=== PATIENT | male | born 1945 | race Caucasian/White ===

== ENCOUNTER → 2019-04-23 10:28 | Outpatient (CLI) | payer OTHER, MEDICARE, BC, SELFPAY ==
--- NOTE | 2019-04-23 | DI.RAD.S_ITS ---
PROCEDURE: FL BARIUM SWALLOW W SPEECH INDICATIONS: Dysphagia, unspecified TECHNIQUE: Examination was conducted in conjunction with speech pathology per standard protocol. In the lateral projection, filming was performed of the patient swallowing. AP projection filming may also be performed with patient swallowing. COMPARISON: None. FINDINGS: Function: The oral preparatory phase appears normal, with proper containment. The subsequent oral propulsive phase, pharyngeal phase, and esophageal phase of swallowing also appear normal with all proffered substances. There was occasional flash laryngeal penetration with thin liquid barium consistencies. No definite tracheal aspiration. There is moderate residue Morphology: No cricopharyngeal bar is identified. No cervical esophageal webs. No Zenker's diverticulum. No strictures. IMPRESSION: Occasional flash laryngeal penetration. Dictated by: Willie Esparza M.D. on 04/23/2019 at 16:33 Approved by: Willie Esparza M.D. on 04/23/2019 at 16:34
--- NOTE | 2019-04-23 13:05 | ST.SWALLOW ---
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 Bragg, ENT Reason for Referral Dysphagia Setting Setting Outpatient Care Patient Information Identification Type Name,ID Wristband Patient History Carlos Manuel Bee was seen for Modified Barium wallow Study ( MBSS) at the referral of Dr. Bragg. According to the information provided by the pt , he had been experiencing increasing choking on solids and liquids during meals. he stated that is occurs about 1x /week, which has been increasing in frequency over the past 3-4 years. He also reported that he clears his throat almost constantly'. Mr Bee reported that in the late s/early he had surgery to move his mandible forward ~.25 inch bilaterally. Following that surgery, the physician told Mr Bee that he wanted to perform a soft tissue surgery.... However that second surgery was not performed secondary to insurance denial. Mr. Bee noted that the surgeon said that choking may be a problem in the future without that second procedure. Subjective Observations Mr Bee was seated in the fluoroscopy chair. Directions and the procedure were explained to Mr Bee, who indicated he understood. Patient Positioning Position View Lateral Imaging Lateral View Textures Administered Trials Presented Thin Liquid via Spoon,Thin Liquid via Cup,Huntsdale Liquid via Spoon,Huntsdale Liquid via Cup,Honey Liquid via Spoon, Pudding Thick Liquid via Spoon ,Regular Textures Oral Phase Source: MBSIMP (TM) (C) Bolus Specific Scoring Grid Lip Closure WFL Tongue Control During Bolus Hold WFL Bolus Prep/Mastication WFL Bolus Transport/Lingual Motion WFL A/P Lingual Propulsion Delay No Oral Residue WFL Nasal Regurgitation Yes: pt reported x1 with hard swallow trial Additional Oral Phase Observations Oral motor observation informally indicated all structures and function WFL Pharyngeal Phase Source: MBSIMP (TM) (C) Bolus Specific Scoring Grid Delayed Initiation of Pharyngeal Swallow No Soft Palate Elevation WFL Tongue Base Strength/Range of Motion Moderate Impairment Residue Along the Tongue Base Yes Clearance of Residue Along Tongue Base Moderate Impairment Laryngeal Elevation Mild Impairment Anterior Hyoid Movement Severe Impairment Epiglottic Range of Motion Severe Impairment Vallecular Residue Yes Clearance of Vallecular Residue Moderate Impairment Laryngeal Vestibular Closure Mild Impairment Pharyngeal Stripping Wave Severe Impairment Posterior Pharyngeal Wall Residue Yes Clearance of Posterior Pharyngeal Wall Moderate Impairment Residue Upper Esophageal Sphincter Opening WFL Residue in the Pyriform Sinuses Yes Clearance of Residue in the Pyriform Mild Impairment Sinuses Esophageal Clearance Upright Position Mild Impairment Pharyngoesophageal Backflow Observed No Additional Pharyngeal Phase Observations Hyolaryngeal elevation was incomplete with minimal anterior movement of the hyoid bone. The epiglottis did not invert and pooling was observed both in the valeculla and the subepiglottic space/ surface. Weak tongue base contact along with the limited forward movement/elevation of the hyolaryngeal body would contribute to the lack of epiglottic inversion. Additionally there was no observed posterior pharyngeal wall stripping to control the bolus. After several swallows , there was trace residue on the arytenoid cartilages. Penetration of the laryngeal vestibule was observed x1 with thin liquids. No aspiration was observed. Trace pooling in the pyriform sinuses following each swallow. Pooling was also observed on the posterior pharyngeal wall. With the cookie trial, residue was observed on the epiglottis, in the valeculla and along the posterior pharyngeal wall. Mr. Bee cleared his throat a few times after each swallow. He reported that he felt something hang up in there with each swallow. A/P View Clinical Impressions Dysphagia Type Pharyngeal phase dysphagia Rehabilitation Potential Excellent Recommendations Diet Liquids Order Thin Diet Order Regular Medication Recommendation As Tolerated Aspiration Precautions Recommended Precautions Upright at 90 Degrees, Alternate Liquids/Solids,Small Bites/Sips Treatment Plan Therapy Recommendations Outpatient Speech Therapy,Base of Tongue Exercises Compensatory Strategies Recommendations Sitting Upright (90 deg),Small Bites and Sips,Alternate Liquids/Solids
== END ==
PROVIDERS: PCP Family Medicine; Visit Provider Otolaryngology
DX: R13.10 Dysphagia, unspecified (principal)
CPT/HCPCS: 74230; 92611

== ENCOUNTER 2019-09-28 12:30 | Outpatient (RCR) | payer OTHER, MEDICARE, BC, SELFPAY ==
--- NOTE | 2019-08-24 18:43 | ST.OPIE ---
Visit Care Team Role Provider Type Robert Ross MD Primary Care Provider Non-Staff Specialty: Medical Address: [facility] [address], [place], [address] Email: MARINA Larkin Attending Provider Non-Staff Specialty: Nursing Address: [address] [place] [address], [id number] Email: Speech-Language Pathology Initial Evaluation LAB INTERN Clinical Swallow Evaluation Start: 08/23/19 10:38 Freq: Status: Active Protocol: Document 08/23/19 10:38 TERRY (Rec: 08/23/19 10:43 TERRY [id number]) Clinical Swallow Evaluation Session Time Visit Start Time 09:35 Visit Stop Time 10:25 Total Visit Minutes 50 Visit Information Plan of Care Dates 08/23/19 - 11/14/19 Insurance Information [facility] Choice Referral Referring Physician MARINA Wilson Reason for Referral Dysphagia Setting Assessment Location Outpatient Care Visit Type Note Type Initial Evaluation Patient Information History The pt is a 74-yr-old male with complaints of constant presence of phlegm and coughing with crumbly foods and liquids, including saliva. He underwent MBSS on 04/23/19 with findings of penetration of thin liquid into laryngeal vestibule x1 trial, incomplete hyolaryngeal elevation and minimal anterior protrusion, weak tongue base retraction, and minimal epiglottic inversion resulting in pharyngeal residue. Pt required multiple swallows per bolus. No aspiration was observed. 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 An additional procedure was recommended but was not done d/t declined by insurance. The pt reports the surgeon telling him that without the second procedure, he would likely develop swallow problems later in life . Additionally, in early Jul 2019 (~3 wks ago) the pt underwent dilation of UES and at juncture of stomach to intestine. The pt reports food was just sitting in stomach. This was done at [facility]. Since then, the pt felt that he has not been aspirating as frequently. Finally, per pt report via Health History form, medical history includes arthritis, back pain, GERD, hearing problems (pt wears hearing aids), and ulcers. Subjective Observations The pt arrived on time and provided case history supplemental to medical records. He exhibited frequent throat clearing throughout the evaluation with and without oral trials. Evaluation Liquids Trialed Thin,Ehrenfeld Solids Trialed Puree,Mechanical Soft,Regular Administration Type Cup Single Sip,Cup Consecutive Sips,Self-Feeding Oral Impairment WNL Oral Strategies Upright at 90 degrees Oral Phase Comments Oral Peripheral Exam: WNL. Pt has natural dentition in good condition. Hyolaryngeal elevation and anterior excursion were perceived WNL via palpation. Oral Phase: WNL Pharyngeal Impairment Moderately Impaired Pharyngeal Strategies Sitting Upright (90 deg), Double Swallow,Effortful Swallow,Small Bites and Sips Pharyngeal Phase Comments The pt c/o sticking sensation with thin liquids, soft sandwich, and dry cracker. The sensation was still present but improved with NTLs and absent with pudding and diced fruit trials. Frequent throat clearing was observed throughout the evaluation. Difficult to know if this is related to swallow or is a chronic cough, as same throat clearing was observed frequently prior to oral trials. Findings Dysphagia Type Mild-Moderate Pharyngel Dysphagia Rehabilitation Potential Good Impressions Pt presents with mild-moderate pharyngeal dysphagia consistent with MBSS report. Skilled intervention is medically necessary to improve swallow function and safety and increase pt comfort with oral intake. The pt was recommended to incorporate NTLs into diet to increase ease, comfort and safety with liquid intake, although he does not appear to be frankly aspirating thin liquids. He was advised to avoid dry, crumbly, and sticky foods or to alternate intake of these consistencies with liquids. He was in agreement with these recommendations as well as outpatient dysphagia therapy. HEP was established, and pt was trained in CTAR, effortful swallow, suck/swallow, larynx lift, Veronika, and base of tongue exercises. Pt returned demonstration of all and verbalized understanding. Diet Recommendations Liquids Order Thin Diet Order Regular Medication Recommendations As Tolerated Comments Avoid dry, crumbly, sticky foods or alternate with liquids; Include NTLs Aspiration Precautions Recommended Precautions Upright at 90 Degrees,Small Bites/Sips,Effortful Swallow, Double Swallow Treatment Plan Placement Recommendations after Home Discharge Appropriate for Therapy Yes Therapy Recommendations Exercises to improve swallow function, safety, and comfort. Compensatory swallow strategies as needed to reduce risk of aspiration and pharyngeal residue. Dysphagia Goals 1. The pt will perform swallow exerices independently to improve swallow function, safety, and comfort with oral intake. 2. The pt will use compensatory swallow strategies independently to reduce risk of aspiration and pharyngeal residue. 3. The pt will tolerate regular texture and thin liquids without overt s/sx of aspiration and with swallow comfort WNL. LAB INTERN Follow Up 1x/wk for 8 wks
--- NOTE | 2019-09-06 11:29 | ST.IPDYTX ---
Visit Care Team Role Provider Type Robert Ross MD Primary Care Provider Non-Staff Specialty: Medical Address: [address], [place], [address] Email: MARINA Larkin Attending Provider Non-Staff Specialty: Nursing Address: [address], [place], [address] Email: CUSTOMER TRAINER Dysphagia Treatment CUSTOMER TRAINER Dysphagia Treatment Start: 09/06/19 11:12 Freq: Status: Active Protocol: Document 09/06/19 11:13 LNK (Rec: 09/06/19 11:28 LNK [id number]) Dysphagia Treatment Session Time Visit Start Time 10:30 Visit Stop Time 10:55 Total Visit Minutes 25 Visit Information Visit Number 09/11 Plan of Care Dates 08/23/19 - 11/14/19 Setting Assessment Location Outpatient Care Visit Type Note Type Treatment Note Next Note Type Next Note Type Treatment Note Patient Information Identification Type Name,Picture Subjective Observations Pt was seated in the waiting area. Treatment Treatment Activities Pt started session by indicating that he had not done the exercises as listed on HEP. he has been very busy lately. he noted that he has been having difficulty working the exercises into his day. Suggested that he perform the exercises he can while in the car (to and from work) or setting aside ~5 minutes in the morning and afternoon daily. Pt indicated that he thought the car was a good suggestion. Added rapid jaw movement with directions to specifically target the suprahyoid muscles. This treatment has been significantly effective in increasing the height and speed of the hyoid elevation during swallowing. Pt was able to perform the exercise after demonstration and description was provided. Written directions provided to the pt. Assessment Patient Response to Treatment Fair Rehab Potential Good Assessment of Improvement Reminded pt that he needs to be more consistent with practice in order to benefit from the exercises. Diet Recommendations Recommendations Continue Current Diet Treatment Plan Therapy Recommendations Exercises to improve swallow function, safety, and comfort. Compensatory swallow strategies as needed to reduce risk of aspiration and pharyngeal Dysphagia Goals 1. The pt will perform swallow exercises independently to improve swallow function, safety, and comfort with oral intake. 2. The pt will use compensatory swallow strategies independently to reduce risk of aspiration and pharyngeal residue. 3. The pt will tolerate regular texture and thin liquids without overt s/sx of aspiration and with swallow comfort WNL.
--- NOTE | 2019-09-28 13:21 | ST.IPDYTX ---
Visit Care Team Role Provider Type Robert Ross MD Primary Care Provider Non-Staff Specialty: Medical Address: [address], [place], [address] Email: MARINA Larkin Attending Provider Non-Staff Specialty: Nursing Address: [address], [place], [address] Email: OIL [employer] G[employer] LEASE PUMPER Dysphagia Treatment [employer] PUMPER Dysphagia Treatment Start: 09/06/19 11:12 Freq: Status: Active Protocol: Document 09/28/19 13:14 TERRY (Rec: 09/28/19 13:21 TERRY [id number]) Dysphagia Treatment Session Time Visit Start Time 12:30 Visit Stop Time 13:13 Total Visit Minutes 43 Visit Information Visit Number 10/09 Plan of Care Dates 08/23/19 - 11/14/19 Setting Assessment Location Outpatient Care Visit Type Note Type Treatment Note Next Note Type Next Note Type Treatment Note Patient Information Identification Type Name,Picture Subjective Observations Pt arrived on time. 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 Reported moderate compliance with HEP. Coughing with oral intake has reduced from 1-2x/day to 1-2x/ wk. The pt expressed being quite pleased. Treatment Liquids Trialed Thin Solids Trialed Regular Administration Type Cup Consecutive Sips,Self- Feeding Oral Strategies Upright at 90 degrees Pharyngeal Strategies Effortful Swallow Treatment Activities Reviewed HEP task list with pt . He indicated he has been doing rapid jaw opening frequently throughout the day and occasionally doing effortful swallow. Further education provided orally and with animated video demonstration of normal and abnormal swallow and targets of each assigned exercise. Trained pt in Shaker exercise. He performed head hold for 60 sec and 15 read lift/lower reps. He also performed Veronika , CTAR, and laryngeal elevation exercises with occluded vocal tract, demonstrating understanding. Discussed POC and agreed to reduce frequency to every other week for 3 visits. Discussed current Coronavirus situation and agreed that if pt felt ill or uncomfortable visiting the hospital for reasons related to the virus, he would notify the clinic and cancel/reschedule appts. Assessment Patient Response to Treatment Good Rehab Potential Excellent Assessment of Improvement Pt is making good progress with swallow safety, experiencing significantly reduced coughing with oral intake. He has improved compliance with HEP since last session but verbalized understanding of importance of completing the entire program and an intention to do so. Anticipate with improved compliance, the pt will meet goals within the next 3-6 wks. Diet Recommendations Recommendations Continue Current Diet Liquids Order Thin Diet Order Regular Medication Recommendations As Tolerated Comments Avoid dry, crumbly, sticky foods or alternate with liquids; Include NTLs Aspiration Precautions Recommended Precautions Upright at 90 Degrees,Small Bites/Sips,Effortful Swallow, Double Swallow Treatment Plan Placement Recommendation after Discharge Home Appropriate for Continued Therapy Yes Therapy Recommendations Exercises to improve swallow function, safety, and comfort. Compensatory swallow strategies as needed to reduce risk of aspiration and pharyngeal Dysphagia Goals 1. The pt will perform swallow exerices independently to improve swallow function, safety, and comfort with oral intake. 2. The pt will use compensatory swallow strategies independently to reduce risk of aspiration and pharyngeal residue. 3. The pt will tolerate regular texture and thin liquids without overt s/sx of aspiration and with swallow comfort WNL. Follow Up Plan 1x/wk for 8 wks
== END 2020-02-01 09:10 ==
LOC: SP 12:30
PROVIDERS: PCP Family Medicine; Visit Provider Nurse Practitioner Family
DX: R13.19 Other dysphagia (principal)
CPT/HCPCS: 92526; 92610

== ENCOUNTER → 2020-10-30 12:46 | Outpatient (CLI) | payer MEDICARE, OTHER, SELFPAY ==
--- NOTE | 2020-10-30 | DI.RAD.S_ITS ---
PROCEDURE: XR HAND RT 2V INDICATIONS: OSTEOARTHRITIS TECHNIQUE: 3 views of the hand(s) acquired. COMPARISON: None. FINDINGS: Bones: No fractures or dislocations. Carpal bones are normally aligned. No suspicious bony lesions. Severe 2nd through 5th DIP joint osteoarthritis. Mild 1st DIP joint osteoarthritis. Mild 3rd through 5th PIP joint osteoarthritis. Soft tissues: No suspicious soft tissue calcifications. IMPRESSION: Osteoarthritis as described above. Dictated by: Greta Palma MD, PhD on 10/30/2020 at 17:16 Approved by: Greta Palma MD, PhD on 10/30/2020 at 17:17
--- NOTE | 2020-10-30 | DI.RAD.S_ITS ---
PROCEDURE: XR HAND LT 2V INDICATIONS: OSTEOARTHRITIS TECHNIQUE: 3 views of the hand(s) acquired. COMPARISON: None. FINDINGS: Bones: No fractures or dislocations. Carpal bones are normally aligned. No suspicious bony lesions. Severe 5th DIP joint osteoarthritis. Moderate 2nd and 3rd DIP joint as well as 4th and 5th PIP joint osteoarthritis. Mild 1st and 2nd DIP joint osteoarthritis as well as 2nd and 3rd PIP joint osteoarthritis. Soft tissues: No suspicious soft tissue calcifications. IMPRESSION: Osteoarthritis as described above. Dictated by: Greta Palma MD, PhD on 10/30/2020 at 17:17 Approved by: Greta Palma MD, PhD on 10/30/2020 at 17:18
[2020-10-30 13:20] LABS: Add Manual Diff / Slide Review NO; Basophils Absolute Auto 0 /uL (0-100); Basophils Percent Auto 0.8 % (0-2); Eosinophils Absolute Auto 0 /uL (0-450); Eosinophils Percent Auto 1.1 % (2-4); Hematocrit 43.7 % (41-53); Hemoglobin 14.9 g/dL (13.5-17.5); Lymphocytes Absolute Auto 1600 /uL (1100-4500); Mean Corpuscular HGB Conc 34.2 % (30-36); Mean Corpuscular Hemoglobin 30.9 PG (26-34); Mean Corpuscular Volume 90.5 fL (80-100); Monocytes Absolute Auto 500 /uL (0-900); Monocytes Percent Auto 11.8 % (3-14); Neutrophils Absolute Auto 2100 /uL (1500-7000); Neutrophils Percent Auto 49.3 % (50-75); Platelet Count 220 X10^3/uL (150-400); Red Blood Cell Count 4.83 X10^6/uL (4.5-5.9); Red Cell Distribution Width 14.2 % (11.6-14.8); White Blood Cell Count 4.2 X10^3/uL (4.5-11.0)
[2020-10-30 13:45] LABS: Alanine Aminotransferase 21 IU/L (<50); Albumin 4.2 g/dL (3.5-5.0); Albumin Globulin Ratio 1.5 (1.0-2.8); Alkaline Phosphatase 61 U/L (38-126); Aspartate Aminotransferase 29 IU/L (17-59); BUN Creatinine Ratio 24.2 (6-22); Bilirubin Total 0.7 mg/dL (0.2-1.3); Blood Urea Nitrogen 16 mg/dL (9-20); Calcium 9.4 mg/dL (8.4-10.2); Carbon Dioxide 27 mmol/L (22-32); Chloride 104 mmol/L (98-107); Cholesterol 225 mg/dL (140-199); Estimated Glomerular Filt Rate > 60.0 mL/min (>60); Globulin 2.8 g/dL (1.7-4.1); Glucose 100 mg/dL (80-110); HDL Cholesterol 75 mg/dL (40-60); HEMOLYSIS < 15 (0-50); LDL Cholesterol Calculated 136 mg/dL (<100); Sodium 137 mmol/L (137-145); Triglycerides 70 mg/dL (35-150)
[2020-10-30 13:50] LABS: Rheumatoid Factor < 8.6 IU/mL (<12.0)
[2020-10-30 17:20] LABS: Erythrocyte Sedimentation Rate 4 MM/HR (0-15)
== END ==
PROVIDERS: PCP Internal Medicine; Referring Provider Internal Medicine; Visit Provider Internal Medicine
DX: I10 Essential (primary) hypertension (principal); N40.1 Benign prostatic hyperplasia with lower urinary tract symptoms; G47.33 Obstructive sleep apnea (adult) (pediatric); M13.0 Polyarthritis, unspecified
CPT/HCPCS: 36415; 73120; 80053; 80061; 85025; 85651; 86430

== ENCOUNTER → 2020-12-13 13:58 | Outpatient (CLI) | payer MEDICARE, OTHER, SELFPAY ==
[2020-12-13 15:56] LABS: COVID19 -Nasal RAPID Negative (Negative)
== END ==
PROVIDERS: PCP Internal Medicine; Visit Provider Family Medicine Sleep Medicine
DX: Z20.822 Contact with and (suspected) exposure to COVID-19 (principal)
CPT/HCPCS: 87635; C9803

== ENCOUNTER → 2021-10-01 11:25 | Outpatient (CLI) | payer MEDICARE, OTHER, SELFPAY ==
[2021-10-01 15:39] LABS: COVID19 -Nasal RAPID Negative (Negative)
== END ==
PROVIDERS: PCP Internal Medicine; Visit Provider Family Medicine Sleep Medicine
DX: Z20.822 Contact with and (suspected) exposure to COVID-19 (principal)
CPT/HCPCS: 87635; C9803

== ENCOUNTER 2021-10-02 07:39 | Day surgery (SDC) | payer MEDICARE, OTHER, SELFPAY ==
[2021-10-02 08:41] VITALS: BP 176/84; PULSE 63; RESP 16; TEMP 36.8; O2SAT 100; BMI 27.3
[2021-10-02] MEDS: PROPARACAINE 0.5% OPHTH SOL 2 DROPS EYE-OP (08:46)
[2021-10-02] MEDS: CATARACT EYE COMPOUND (10 DROPS/SYRINGE) 3 DROPS EYE-OP (08:49)
--- NOTE | 2021-10-02 09:08 | PM.PREOP ---
Pre-operative Note Interval Note History & Physical reviewed/Exam performed by Physician: Yes Changes to H&P: No
--- NOTE | 2021-10-02 09:08 | PM.OP.1 ---
Operative Date/Time/Diagnoses Pre-op diagnosis: Nuclear cataract right eye Procedure & Clinicians Procedure: Cataract Surgery Same procedure as scheduled: Yes Surgeon: Sameer Davenport Anesthesia Type: MAC +/- and Sedation Operative Notes Procedure in detail: Patient brought to the operating suite. Tetracaine drops placed in the right eye. Patient was prepped and draped in sterile manner. Wire lid speculum was placed in the eye. Betadine drops were placed on the eye. This was irrigated. Lidocaine jelly was placed on the eye. A paracentesis port was created with a side-port blade. 0.1 mL 1% preservative free lidocaine was injected into the anterior chamber. The anterior chamber was deepened with viscoelastic. 2.6 mm keratome was used to create a temporal clear corneal incision. Cystotome and Utrata forceps were used to create continuous tear capsulorrhexis. Balanced salt solution was used to hydro dissect the nucleus. The phacoemulsification handpiece was inserted and the nucleus was removed using the stop and chop technique. The irrigation aspiration handpiece was inserted and the remaining cortex was removed. Anterior chamber was deepened with viscoelastic. An Brown DIB00 intraocular lens with a power of 17.5 was injected into the capsular bag. Irrigation aspiration handpiece was inserted and the remaining viscoelastic was removed. Incision was hydrated with balanced salt solution and found to be leak free with pressure with Weck-Theresa sponges. 0.1 mL Vigamox injected anterior chamber. 0.3 mL Kenalog 10 mg was injected subconjunctivally. Lid speculum was removed. The patient left the operating room in excellent condition. Complications: none Post-operative Condition: stable Disposition: same day surgery
--- NOTE | 2021-10-02 09:09 | PM.PREOP ---
Pre-operative Note Interval Note History & Physical reviewed/Exam performed by Physician: Yes Changes to H&P: No
[2021-10-02] MEDS: MOXIFLOXACIN INJ 4 MG/0.8 ML VIAL 0.5 MG EYE-OP (09:27)
[2021-10-02] MEDS: HYALURONATE SODIUM 30 MG-10 MG/ML SYRINGES 1 BOX INTRAOCULA (09:27)
[2021-10-02] MEDS: LIDOCAINE 2% (GLYDO) 6 ML GEL TOP (09:28)
[2021-10-02] MEDS: BALANCED SALT IRRIG SOLN NO.2 500 ML, EPINEPHrine 1 MG IRR (09:28)
[2021-10-02] MEDS: TRIAMCINOLONE 50 MG/5 ML VIAL INJ (09:28)
[2021-10-02] MEDS: PHENYLEPHRINE/LIDOCAINE VIAL (OR) 0.2 ML EYE-OP (09:28)
[2021-10-02] MEDS: TETRACAINE 0.5% OPHTH DROPS 4 ML 2 DROPS EYE-OP (09:28)
[2021-10-02 09:42] VITALS: BP 164/80; PULSE 63; RESP 14; TEMP 36.2; O2SAT 100
== END 2021-10-02 09:52 | disposition home or self-care (01) ==
PROVIDERS: PCP Internal Medicine; Referring Provider Ophthalmology; Visit Provider Ophthalmology
PROC: (CPT 66984; principal; 2021-10-02 09:45)
DX: H25.11 Age-related nuclear cataract, right eye (principal); I10 Essential (primary) hypertension; D64.9 Anemia, unspecified
CPT/HCPCS: 66984; J0171; J2250; J3301

== ENCOUNTER 2025-04-06 11:12 | Emergency (ER) | payer MEDICARE, OTHER, SELFPAY ==
[2025-04-06 11:17] VITALS: BP 158/73; PULSE 68; RESP 17; TEMP 36.3; O2SAT 99; BMI 27.3
--- NOTE | 2025-04-06 11:24 | DI.RAD.S_ITS ---
PROCEDURE: XR SHOULDER RT MIN 2V INDICATIONS: pain TECHNIQUE: 3 views of the shoulder were acquired. COMPARISON: None. FINDINGS: Bones: No fractures or dislocations. [id number] acromioclavicular joint and glenohumeral joint osteoarthritic changes are seen. No suspicious bony lesions. Visualized ribs appear intact. Soft tissues: No suspicious soft tissue calcifications. IMPRESSION: [id number] right shoulder joint osteoarthritis. No acute fracture or dislocation. No gross soft tissue abnormalities. Dictated by: Lj Lambert M.D. on 04/06/2025 at 12:01 Approved by: Lj Lambert M.D. on 04/06/2025 at 12:04
--- NOTE | 2025-04-06 16:14 | ED.EXTPRO ---
HPI - Extremity Problem General Chief complaint: Extremity Problem,Nontraumatic Stated complaint: Right arm pain x 3weeks Time Seen by Provider: 04/06/25 16:12 Source: patient, RN notes reviewed and old records reviewed Mode of arrival: Ambulatory Limitations: no limitations History of Present Illness HPI Narrative: 82-year-old male with a history hypertension, GERD, dyslipidemia of right shoulder pain x3 weeks has had a prior shoulder infection [place] [address] with the IV antibiotics for 6 months and had PICC line. Patient states he had a washout of the shoulder as well as his left wrist at that time. Has not had any additional intervention since. Patient states was seen the year following but did not have any additional follow up with Orthopedic surgery. His orthopedic surgeon has since retired. Patient states for the past 3 weeks has a had increasing shoulder pain states it has been persistent not improving getting a little bit worse. No fevers but no some chills today. No chest pain or shortness of breath. No nausea or vomiting. No issues with bowel movements or urination. No swelling down his arms. No numbness tingling or weakness. He notes increased pain at the shoulder does radiate down words a little bit. He states this feels very similar to his prior episode. Patient is concerned he had Staphylococcus aureus infection in that shoulder in the past. States no other priors surgical history. Denies any drug allergies. No tobacco, no alcohol, no recreational or IV drugs. Dr. Letty collazo as his primary care physician. Related Data Home Medications ?Medication ?Instructions ?Recorded ?Confirmed clotrimazole 10 mg hayley 10 mg PO DAILY 10/02/21 10/02/21 losartan 25 mg tablet 25 mg PO DAILY 10/02/21 04/06/25 pilocarpine HCl 5 mg tablet 5 mg PO DAILY 10/02/21 10/02/21 rosuvastatin 40 mg tablet (Crestor) 40 mg PO DAILY 04/06/25 04/06/25 Previous Rx's ?Medication ?Instructions ?Recorded hydrocodone 5 mg-acetaminophen 325 1 tab PO Q6H PRN pain #10 tabs 04/06/25 mg tablet Allergies Allergy/AdvReac Type Severity Reaction Status Date / Time No Known Drug Allergies Allergy Verified 04/06/25 11:20 Review of Systems Review of Systems ROS Unobtainable: All systems reviewed & are unremarkable except as noted in HPI and below Patient History Medical History Other infective bursitis, right shoulder Hypertension Hypercholesteremia Surgical History History of mandibular surgery Social History household members: spouse Smoking Status: Never smoker alcohol intake: current Smoking Status: Never smoker alcohol intake frequency: 0-2 drinks per day Exam Narrative Exam Narrative: GENERAL: Alert and oriented x three, mild distress HEENT: Head normocephalic, atraumatic, EOMI, pupils reactive, face symmetric, moist mucous membranes NECK: Supple, full range of motion CARDIOVASCULAR: Regular rate and rhythm without murmurs, rubs or gallops. RESPIRATORY: Breath sounds equal bilaterally, no wheezes rales or rhonchi. ABDOMEN: Soft, nontender. Normoactive bowel sounds all 4 quadrants. No guarding or rebound, rigidity, no mass : No CVA tenderness EXTREMITIES: Patient does have some decreased range of motion of the shoulder, can bring up to 90?. Has a normal flexion-extension. No warmth erythema or skin changes appreciated on exam, no clubbing or edema. Neurovascularly intact. 2+ pulses bilateral upper extremities. Normal push and pull. Sensation intact bilateral upper extremities. Full range of motion of fingers, wrist and elbows. NEUROLOGICAL: Cranial nerves II through XII grossly intact. Moving all extremities SKIN: Warm, dry, no petechiae, no rashes or lesions otherwise appreciated. Initial Vital Signs Initial Vital Signs: Vital Signs Temperature 97.4 F L 04/06/25 11:17 Pulse Rate 68 04/06/25 11:17 Respiratory Rate 17 04/06/25 11:17 Blood Pressure 158/73 H 04/06/25 11:17 Pulse Oximetry 99 04/06/25 11:17 Oxygen Delivery Method Room Air 04/06/25 11:17 Course Orders Ordered: ED Orders 04/06/25 11:24 XR shoulder RT 2+ views Stat 04/06/25 16:35 CBC Auto Diff [Complete Blood Count AUTO DIFF] Stat CMP [Comprehensive Metabolic Panel] Stat CRP [C-Reactive Protein Quant] Stat ESR [Erythrocyte Sedimentation Rate] Stat Lactate (Lactic Acid) Stat Procalcitonin Stat 04/06/25 17:17 Blood Culture Stat Discontinued Medications Hydrocodone Bitart/Acetaminophen (Hydrocodone/Acet 5/325 Tablet) 2 tab PO NOW ONE Stop: 04/06/25 16:23 Last Admin: 04/06/25 16:28 Dose: 2 tab Documented By: Sodium Chloride (Normal Saline 0.9%) 1,000 mls @ 1,000 mls/hr IV BOLUS ONE Stop: 04/06/25 17:21 Vital Signs Vital signs: Vital Signs - 8 hr 04/06/25 11:17 Temperature 97.4 F L Pulse Rate 68 Respiratory Rate 17 Blood Pressure 158/73 H Pulse Oximetry 99 Oxygen Delivery Method Room Air MDM - Extremity (Nontraumatic) Lab Data 04/06/25 16:35 04/06/25 16:35 Labs: Lab Results 04/06/25 Range/Units 16:35 WBC 9.8 (4.5-11.0) X10^3/uL RBC 4.96 (4.5-5.9) X10^6/uL Hgb 16.0 (13.5-17.5) g/dL Hct 46.6 (41-53) % MCV 94.1 (80-100) fL MCH 32.3 (26-34) PG MCHC 34.3 (30-36) % RDW 14.0 (11.6-14.8) % Plt Count 245 (150-400) X10^3/uL Neut % (Auto) 74.1 (50-75) % Lymph % (Auto) 13.5 L (25-40) % [place] % (Auto) 11.3 (3-14) % Eos % (Auto) 0.6 L (2-4) % Baso % (Auto) 0.5 (0-2) % Neut # (Auto) 7300 H (7966-5896) /uL Lymph # (Auto) 1300 (2507-4096) /uL [place] # (Auto) 1100 H (0-900) /uL Eos # (Auto) 100 (0-450) /uL Baso # (Auto) 100 (0-100) /uL ESR 6 (0-15) MM/HR Sodium 139 (137-145) mmol/L Potassium 3.9 (3.4-5.1) mmol/L Chloride 105 (98-107) mmol/L Carbon Dioxide 23 (22-32) mmol/L BUN 16 (9-20) mg/dL Creatinine 0.67 (0.66-1.25) mg/dL Estimated GFR > 60 (>60) mL/min BUN/Creatinine Ratio 23.9 H (6-22) Glucose 101 H (70-99) mg/dL Lactate 1.1 (0.7-2.1) mmol/L Calcium 9.3 (8.4-10.2) mg/dL Total Bilirubin 1.1 (0.2-1.3) mg/dL AST 27 (17-59) IU/L ALT 22 (<50) IU/L Alkaline Phosphatase 60 (38-126) U/L C-Reactive Protein < 0.5 (<1.0) mg/dL Total Protein 8.4 H (6.3-8.2) g/dL Albumin 4.9 (3.5-5.0) g/dL Globulin 3.5 (1.7-4.1) g/dL Albumin/Globulin Ratio 1.4 (1.0-2.8) Procalcitonin 0.042 (<0.5) ng/mL MDM Narrative Medical decision making narrative: Shoulder x-ray [id number] right shoulder joint osteoarthritis no acute fracture or dislocation no gross soft tissue abnormalities. Labs white count of 9.8 hemoglobin of 16 platelets of 245, neutrophils are 7300. ESR is 6. Chemistries show a normal CRP less than 0.5 with normal electrolytes BUN creatinine, lactate is 1.1 procalcitonin [address] Davidson, orthopedic surgery-she is following along with the patient's labs. Does not feel the patient needs a tap emergently particularly as patient does have some range of motion but would like to see them shortly. With the patient reviewed his findings he feels comfortable with this plan. Discussed we have not completely ruled out infected joint but does not appear to be a septic arthritis at this time. Does have a concerning history. He will reach out to the office 1st thing in the morning. We did discuss return precautions all questions answered. Discharge Plan Departure Patient Disposition: Home Clinical Impression: Pain in right shoulder Activity Restrictions/Additional Instructions: Follow up with Orthopedic surgery for re-evaluation. I did talk with the orthopedic surgeon, Dr. Davidson today. She would like to see you in the short term. Please call the office 1st thing in the morning. Your labs are overall reassuring but do not completely rule out any possibility of infection. It is important that you do follow up. Prescription for pain medication was sent to Please return if you develop fevers, increasing pain, new redness, swelling or any other new or concerning changes. Prescriptions: New hydrocodone-acetaminophen 5-325 mg tablet 1 tab PO Q6H PRN (Reason: pain) Qty: 10 0RF No Action rosuvastatin [Crestor] 40 mg tablet 40 mg PO DAILY clotrimazole 10 mg hayley 10 mg PO DAILY pilocarpine HCl 5 mg tablet 5 mg PO DAILY Patient Comments: TAKE 1 TABLET BY MOUTH THREE TIMES DAILY. FOR ORAL DRYNESS losartan 25 mg tablet 25 mg PO DAILY Referrals: Susie Davidson DO [Physician, Orthopedic Surgery] Stand Alone Forms: Patient Portal/API
[2025-04-06] MEDS: SODIUM CHLORIDE 0.9% 1,000 ML 1000 ML IV (17:00)
[2025-04-06 17:01] LABS: Add Manual Diff / Slide Review NO; Hematocrit 46.6 % (41-53); Hemoglobin 16.0 g/dL (13.5-17.5); Lymphocytes Absolute Auto 1300 /uL (1100-4500); Mean Corpuscular HGB Conc 34.3 % (30-36); Mean Corpuscular Hemoglobin 32.3 PG (26-34); Mean Corpuscular Volume 94.1 fL (80-100); Platelet Count 245 X10^3/uL (150-400)
[2025-04-06 17:05] LABS: Lactate (Lactic Acid) 1.1 mmol/L (0.7-2.1)
[2025-04-06 17:07] LABS: Alanine Aminotransferase 22 IU/L (<50); Albumin 4.9 g/dL (3.5-5.0); Albumin Globulin Ratio 1.4 (1.0-2.8); Alkaline Phosphatase 60 U/L (38-126); Blood Urea Nitrogen 16 mg/dL (9-20); Calcium 9.3 mg/dL (8.4-10.2); Carbon Dioxide 23 mmol/L (22-32); Chloride 105 mmol/L (98-107); Estimated Glomerular Filt Rate > 60 mL/min (>60); Globulin 3.5 g/dL (1.7-4.1); Glucose 101 mg/dL (70-99); HEMOLYSIS 20 (0-50); Potassium 3.9 mmol/L (3.4-5.1); Sodium 139 mmol/L (137-145); Total Protein 8.4 g/dL (6.3-8.2)
[2025-04-06 17:21] LABS: Procalcitonin 0.042 ng/mL (<0.5)
[2025-04-06 18:38] VITALS: BP 164/77; PULSE 16; RESP 16; TEMP 37.1; O2SAT 98
== END 2025-04-06 18:43 | disposition home or self-care (01) ==
PROVIDERS: Emergency Provider Emergency Medicine
DX: M25.511 Pain in right shoulder (principal)
CPT/HCPCS: 36415; 73030; 80053; 83605; 84145; 85025; 85651; 86140; 87040; 96360; 99284

== ENCOUNTER → 2025-04-14 08:16 | Outpatient (CLI) | payer MEDICARE, OTHER, SELFPAY ==
--- NOTE | 2025-04-14 08:18 | DI.MRI.S_ITS ---
PROCEDURE: MR SHOULDER RT WO CON INDICATIONS: pain TECHNIQUE: Noncontrast oblique coronal T2 fast spin echo with fat saturation, oblique sagittal T1 spin echo and T2 fast spin echo with fat saturation, axial T1 spin echo and T2 fast spin echo with fat saturation through the shoulder. COMPARISON: [facility], CR, XR SHOULDER RT 2+ VIEWS, 04/06/2025, 11:28. FINDINGS: Image quality: Excellent. Rotator cuff: Moderate tendinosis of the superior rotator cuff. Supraspinatus insertional low-grade intrasubstance tearing with a total tear with of 9 mm (10/5). No significant retraction. Superficial bursal sided fraying of the supraspinatus and infraspinatus. No infraspinatus tear. Mild intrasubstance tendinosis of the superior subscapularis. No tear. Teres minor is intact. No significant atrophy or fatty infiltration of the rotator cuff musculature. Biceps: Mild tendinosis of the intra-articular long head of the biceps. Osseous structures and articular cartilage: No fracture, or suspicious marrow replacing process, or contusion. Partial-thickness articular cartilage thinning of the anterior glenoid, grade 2. Supraspinatus outlet: Minimal degenerative arthrosis of the acromioclavicular joint. Moderate subacromial subdeltoid bursitis. Intra-articular: Intrasubstance tear of the superior labrum at 12:00 p.m. The capsule is unremarkable. No imaging findings of adhesive capsulitis. Extra-articular: Low grade 2 strain of the anterior head of the deltoid. Normal subcutaneous fat. No axillary lymphadenopathy. IMPRESSION: 1. Moderate tendinosis of the rotator cuff with insertional low-grade degenerative tearing of the insertional supraspinatus at the footprint. 2. Moderate subacromial subdeltoid bursitis. 3. Low grade 2 strain of the anterior head of the deltoid. 4. Mild tendinosis of the long head biceps. Dictated by: Pankaj Camejo M.D. on 04/14/2025 at 11:44 Approved by: Pankaj Camejo M.D. on 04/14/2025 at 11:56
== END ==
PROVIDERS: PCP Internal Medicine; Referring Provider Internal Medicine; Visit Provider Orthopaedic Surgery
DX: M75.111 Incomplete rotator cuff tear or rupture of right shoulder, not specified as traumatic (principal); S46.811A Strain of other muscles, fascia and tendons at shoulder and upper arm level, right arm, initial encounter; M75.51 Bursitis of right shoulder; M25.511 Pain in right shoulder
CPT/HCPCS: 73221